=== PATIENT | male | born 1955 | race Caucasian/White ===

== ENCOUNTER 2022-04-17 13:44 | Observation (INO) | payer OTHER, BC ==
[2022-04-17 14:03] VITALS: BMI 27.3
[2022-04-17 14:53] LABS: BASO % 0.8 % (0-2.0); EOS % 0.8 % (0-4.5); HEMATOCRIT 42.9 % (35.4-49); HEMOGLOBIN 14.6 GM/dL (11.7-16.9); LYMPH % 21.7 % (8-40); MCH 27.5 pg (25.7-33.7); MEAN CELL VOLUME 80.9 fl (80-96); MEAN PLT VOLUME 8.2 fl (7.5-11.1); MONO % 8.8 % (3.8-10.2); NEUT % 67.9 % (42.8-82.8); PLATELET COUNT 260 10^3/uL (134-434); RDW 15.2 % (11.9-15.9); WHITE BLOOD COUNT 8.6 K/mm3 (4.0-10.0)
[2022-04-17 15:00] LABS: INR 1.06 (0.83-1.09); PROTHROMBIN TIME (PATIENT) 12.3 SEC (9.7-13.0)
[2022-04-17 15:02] LABS: ACTIVATED PTT 31.5 SECONDS (25.2-36.5)
[2022-04-17] MEDS ORDERED: dilTIAZem HCL 50 MG/10 ML - 10 ML VIAL IVPUSH ONE (15:20)
[2022-04-17] MEDS ORDERED: dilTIAZem HCL 50 MG/10 ML - 10 ML VIAL ONE (15:30)
[2022-04-17] MEDS ORDERED: METOPROLOL TARTRATE 5 MG/5 ML VIAL IVPUSH PRN (15:52)
[2022-04-17 16:15] LABS: CHLORIDE 104 mmol/L (98-107); SODIUM 133 mmol/L (136-145)
[2022-04-17 16:17] LABS: BLOOD UREA NITROGEN 11.9 mg/dL (7-18); CALCIUM 9.1 mg/dL (8.5-10.1); CO2 23 mmol/L (21-32); GLUCOSE,RANDOM 94 mg/dL (74-106); MAGNESIUM 1.8 mg/dL (1.8-2.4)
[2022-04-17 16:18] LABS: ALBUMIN 3.9 g/dl (3.4-5.0)
[2022-04-17 16:21] LABS: ANION GAP 6 MMOL/L (8-16); SGPT/ALT 28 U/L (13-61)
[2022-04-17 16:23] LABS: ALK PHOS 52 U/L (45-117); BILIRUBIN,TOTAL 0.6 mg/dL (0.2-1); TOT PROT 7.9 g/dl (6.4-8.2)
[2022-04-17 16:26] LABS: N-TERMINAL BNP 1432.2 pg/ml (5-125)
[2022-04-17 16:30] LABS: SGOT/AST 114 U/L (15-37)
[2022-04-17] MEDS: ENOXAPARIN NA (PORCINE) 80 MG/0.8 ML DISP.SYRIN SQ SCH (21:56)
[2022-04-17] MEDS: METOPROLOL TARTRATE 25 MG TABLET (FP) PO SCH (21:56)
[2022-04-18 07:31] LABS: BASO % 0.8 % (0-2.0); HEMATOCRIT 42.5 % (35.4-49); HEMOGLOBIN 14.4 GM/dL (11.7-16.9); LYMPH % 29.8 % (8-40); MCH 27.3 pg (25.7-33.7); MCHC 33.9 g/dl (32.0-35.9); MEAN CELL VOLUME 80.5 fl (80-96); MEAN PLT VOLUME 8.3 fl (7.5-11.1); MONO % 9.9 % (3.8-10.2); NEUT % 57.5 % (42.8-82.8); PLATELET COUNT 252 10^3/uL (134-434); RBC 5.28 M/mm3 (4.00-5.60); WHITE BLOOD COUNT 7.4 K/mm3 (4.0-10.0)
[2022-04-18 08:01] LABS: CALCIUM 9.3 mg/dL (8.5-10.1)
[2022-04-18 08:02] LABS: ALBUMIN 3.7 g/dl (3.4-5.0); BLOOD UREA NITROGEN 15.6 mg/dL (7-18); CREATININE 0.9 mg/dL (0.55-1.3)
[2022-04-18 08:03] LABS: BILIRUBIN,TOTAL 0.6 mg/dL (0.2-1); TOT PROT 6.9 g/dl (6.4-8.2)
[2022-04-18] MEDS: ENOXAPARIN NA (PORCINE) 80 MG/0.8 ML DISP.SYRIN SQ SCH (09:09)
[2022-04-18] MEDS: METOPROLOL TARTRATE 25 MG TABLET (FP) PO SCH ×2 (09:09→21:35)
[2022-04-18] MEDS: ACETAMINOPHEN 325 MG TABLET (FP) PO PRN ×2 (10:34→20:21)
[2022-04-18] MEDS: FUROSEMIDE 20 MG TABLET (FP) PO SCH (13:22)
[2022-04-18] MEDS: APIXABAN 5 MG TABLET PO SCH (21:35)
[2022-04-19 05:48] VITALS: RESP 20
[2022-04-19 08:01] VITALS: BP 129/87; PULSE 59; TEMP 98.8
[2022-04-19] MEDS: METOPROLOL TARTRATE 25 MG TABLET (FP) PO SCH (09:02)
[2022-04-19] MEDS: APIXABAN 5 MG TABLET PO SCH (09:02)
[2022-04-19] MEDS: FUROSEMIDE 20 MG TABLET (FP) PO SCH (09:02)
== END 2022-04-19 10:06 | disposition home or self-care (01) ==
LOC: JER 13:44 → JERBED 15:21 → J4W 18:06
PROVIDERS: ADMIT Family Medicine; ATTEND Family Medicine
PROC: 3E033GC Introduction of Other Therapeutic Substance into Peripheral Vein, Percutaneous Approach (ICD-10-PCS; principal; 2022-04-17)
PROC: 3E023GC Introduction of Other Therapeutic Substance into Muscle, Percutaneous Approach (ICD-10-PCS; 2022-04-17)
DX: I48.91 Unspecified atrial fibrillation (principal); M54.9 Dorsalgia, unspecified; I10 Essential (primary) hypertension; I48.20 Chronic atrial fibrillation, unspecified; J45.909 Unspecified asthma, uncomplicated
CPT/HCPCS: 0241U-QW; 36415; 71045-TC-FY; 71275-TC; 80053; 80061; 83735; 83880; 84132; 84436; 84439; 84443; 84484; 85025; 85379; 85610; 85730; 93005; 93010; 96372; 96374; 99285-25; G0378; Q9967

== ENCOUNTER 2024-06-18 15:24 | Inpatient (IN) | payer OTHER, BC ==
[2024-06-18 16:16] LABS: ABSOLUTE IMMATURE GRANULOCYTES 0.05 x10^3/uL (0.0-0.031); BASOPHILS # 0.09 x10^3/uL (0.01-0.08); EOSINOPHIL % 1.3 % (0.8-7.0); EOSINOPHILS # 0.16 x10^3/uL (0.04-0.54); HEMOGLOBIN 13.3 g/dL (13.7-17.5); MCHC 32.4 g/dl (32.3-36.5); MEAN CELL VOLUME 74.7 fl (79.0-92.2); MONOCYTE # 1.14 x10^3/uL (0.30-0.82); PLATELET COUNT 273 x10^3/uL (163-337); RDW 15.1 % (12.2-16.4)
[2024-06-18 16:24] LABS: INR 1.78 (0.83-1.09); PROTHROMBIN TIME (PATIENT) 19.4 SEC (9.7-13.0)
[2024-06-18 16:35] LABS: CHLORIDE 100 mmol/L (98-107); SODIUM 140 mmol/L (136-145)
[2024-06-18 16:37] LABS: CALCIUM 9.5 mg/dL (8.5-10.1)
[2024-06-18 16:38] LABS: ALBUMIN 3.9 g/dl (3.4-5.0); BLOOD UREA NITROGEN 13.3 mg/dL (7-18); CO2 29 mmol/L (21-32); GLUCOSE,RANDOM 106 mg/dL (74-106); MAGNESIUM 1.5 mg/dL (1.8-2.4)
[2024-06-18 16:41] LABS: CREATININE 1.1 mg/dL (0.55-1.3); SGOT/AST 27 U/L (15-37); SGPT/ALT 23 U/L (13-61)
[2024-06-18 16:43] LABS: BILIRUBIN,TOTAL 0.5 mg/dL (0.2-1); TOT PROT 7.2 g/dl (6.4-8.2)
[2024-06-18 16:44] LABS: ALK PHOS 61 U/L (45-117)
[2024-06-18] MEDS ORDERED: MAGNESIUM 1GM/D5W - 1 GM/100 ML IVPB IVPB ONE (17:05)
[2024-06-18 17:18] LABS: ANION GAP 12 mmol/L (4-13); POTASSIUM 2.9 mmol/L (3.5-5.1)
[2024-06-18] MEDS: SODIUM CHLORIDE 0.9% 500 ML INFUS.BAG IV ONE (17:21)
[2024-06-18] MEDS: MAGNESIUM SULF 50% (8.12 MEQ/2 ML-1 GM VIAL) IVPB ONE (17:21)
[2024-06-18] MEDS ORDERED: POTASSIUM CHLORIDE ORAL LIQUID 20 MEQ/15 ML ONE (17:45)
[2024-06-18] MEDS: POTASSIUM CHLORIDE ORAL LIQUID 20 MEQ/15 ML PO ONE (17:48)
[2024-06-18 18:19] LABS: HCV DIAGNOSTIC IN-HOUSE W/RFLX NON-REACTIVE (NONREACTIVE); HIV INTERPRETATION NEGATIVE (NEGATIVE)
[2024-06-18] MEDS ORDERED: KCL 10 MEQ IVPB 10 MEQ/100 ML INFUS.BAG IVPB ONE (18:51)
[2024-06-18] MEDS: KCL 10 MEQ IVPB 10 MEQ/100 ML INFUS.BAG IVPB SCH (18:59)
[2024-06-18] MEDS: SODIUM CHLORIDE 0.9% 1000 ML INFUS.BAG IV ONE (18:59)
[2024-06-18] MEDS ORDERED: KCL 10 MEQ IVPB 20 MEQ/200 ML INFUS.BAG IVPB ONE (19:42)
[2024-06-18] MEDS ORDERED: APIXABAN 5 MG TABLET ONE (21:38)
[2024-06-18] MEDS ORDERED: ATORVASTATIN CA 10 MG TABLET (FP) ONE ×2 (21:38→21:41)
[2024-06-18] MEDS: ATORVASTATIN CA 10 MG TABLET (FP) PO SCH (21:40)
[2024-06-18] MEDS: APIXABAN 5 MG TABLET PO SCH (21:40)
[2024-06-18 22:31] VITALS: BMI 27.3
[2024-06-19] MEDS: ACETAMINOPHEN 325 MG TABLET (FP) PO PRN (03:22)
[2024-06-19 03:43] LABS: POTASSIUM 3.5 mmol/L (3.5-5.1)
[2024-06-19 03:44] LABS: CALCIUM 8.8 mg/dL (8.5-10.1)
[2024-06-19 03:45] LABS: BLOOD UREA NITROGEN 11.1 mg/dL (7-18)
[2024-06-19 03:48] LABS: CREATININE 0.9 mg/dL (0.55-1.3)
[2024-06-19] MEDS: oxyCODONE HCL 5 MG TABLET PO ONE (06:47)
[2024-06-19 08:24] LABS: ABSOLUTE IMMATURE GRANULOCYTES 0.03 x10^3/uL (0.0-0.031); BASOPHILS # 0.07 x10^3/uL (0.01-0.08); EOSINOPHIL % 1.7 % (0.8-7.0); EOSINOPHILS # 0.18 x10^3/uL (0.04-0.54); HEMATOCRIT 39.4 % (40.1-51.0); HEMOGLOBIN 12.6 g/dL (13.7-17.5); MEAN CELL VOLUME 76.1 fl (79.0-92.2); MEAN PLT VOLUME 10.4 fl (9.4-12.4); MONOCYTE # 1.04 x10^3/uL (0.30-0.82); MONOCYTE % 9.8 % (5.3-12.2); PLATELET COUNT 239 x10^3/uL (163-337); RDW 15.5 % (12.2-16.4)
[2024-06-19 08:43] LABS: POTASSIUM 3.5 mmol/L (3.5-5.1)
[2024-06-19 08:45] LABS: CALCIUM 8.8 mg/dL (8.5-10.1)
[2024-06-19 08:46] LABS: BLOOD UREA NITROGEN 11.2 mg/dL (7-18); MAGNESIUM 1.7 mg/dL (1.8-2.4)
[2024-06-19] MEDS: MAGNESIUM 1GM/D5W 100ML - 100 ML IVPB IVPB ONE (09:29)
[2024-06-19] MEDS: POTASSIUM CHLORIDE ORAL LIQUID 20 MEQ/15 ML PO ONE (09:29)
[2024-06-19 14:29] LABS: URINE APPEARANCE CLEAR; URINE BILIRUBIN NEGATIVE (NEGATIVE); URINE COLOR YELLOW; URINE GLUCOSE (UA) NEGATIVE (NEGATIVE); URINE KETONE NEGATIVE (NEGATIVE); URINE LEUK ESTERASE NEGATIVE (NEGATIVE); URINE NITRITE NEGATIVE (NEGATIVE); URINE PROTEIN NEGATIVE (NEGATIVE); URINE UROBILINOGEN 0.2 mg/dL (0.2-1.0)
[2024-06-20] MEDS: oxyCODONE HCL 5 MG TABLET PO ONE (00:09)
[2024-06-20] MEDS: CycloBENZAprine HCL 5 MG TABLET PO ONE (06:29)
[2024-06-20] MEDS: traMADol HCL 50 MG TABLET PO PRN (09:31)
[2024-06-20 09:49] LABS: ABSOLUTE IMMATURE GRANULOCYTES 0.05 x10^3/uL (0.0-0.031); BASOPHILS # 0.07 x10^3/uL (0.01-0.08); EOSINOPHIL % 1.1 % (0.8-7.0); EOSINOPHILS # 0.13 x10^3/uL (0.04-0.54); HEMATOCRIT 38.8 % (40.1-51.0); HEMOGLOBIN 11.9 g/dL (13.7-17.5); MCHC 30.7 g/dl (32.3-36.5); MEAN CELL VOLUME 76.5 fl (79.0-92.2); MEAN PLT VOLUME 9.8 fl (9.4-12.4); MONOCYTE # 1.01 x10^3/uL (0.30-0.82); MONOCYTE % 8.4 % (5.3-12.2); PLATELET COUNT 233 x10^3/uL (163-337); RDW 15.8 % (12.2-16.4)
[2024-06-20 10:11] LABS: POTASSIUM 3.4 mmol/L (3.5-5.1)
[2024-06-20 10:15] LABS: CALCIUM 9.3 mg/dL (8.5-10.1)
[2024-06-20 10:16] LABS: ALBUMIN 3.5 g/dl (3.4-5.0); BLOOD UREA NITROGEN 11.7 mg/dL (7-18); MAGNESIUM 1.7 mg/dL (1.8-2.4)
[2024-06-20 10:19] LABS: CREATININE 0.9 mg/dL (0.55-1.3)
[2024-06-20 10:20] LABS: BILIRUBIN,TOTAL 0.6 mg/dL (0.2-1); TOT PROT 6.7 g/dl (6.4-8.2)
[2024-06-20] MEDS: POTASSIUM CHLORIDE TABS 20 MEQ TABLET.ER (FP) PO ONE (11:08)
[2024-06-20] MEDS: MAGNESIUM 2GM/50ML STERILE WATER IVPB IVPB ONE (11:08)
[2024-06-20] MEDS: oxyCODONE HCL 5 MG TABLET PO PRN (17:33)
[2024-06-21 07:47] LABS: ABSOLUTE IMMATURE GRANULOCYTES 0.02 x10^3/uL (0.0-0.031); BASOPHILS # 0.05 x10^3/uL (0.01-0.08); EOSINOPHIL % 1.3 % (0.8-7.0); EOSINOPHILS # 0.13 x10^3/uL (0.04-0.54); HEMATOCRIT 35.8 % (40.1-51.0); HEMOGLOBIN 11.2 g/dL (13.7-17.5); MCHC 31.3 g/dl (32.3-36.5); MEAN CELL VOLUME 76.2 fl (79.0-92.2); MEAN PLT VOLUME 10.1 fl (9.4-12.4); MONOCYTE # 1.07 x10^3/uL (0.30-0.82); MONOCYTE % 10.4 % (5.3-12.2); PLATELET COUNT 213 x10^3/uL (163-337); RDW 15.7 % (12.2-16.4)
[2024-06-21 08:04] LABS: POTASSIUM 3.5 mmol/L (3.5-5.1)
[2024-06-21 08:07] LABS: CALCIUM 9.1 mg/dL (8.5-10.1)
[2024-06-21 08:08] LABS: ALBUMIN 3.3 g/dl (3.4-5.0); BLOOD UREA NITROGEN 8.7 mg/dL (7-18); MAGNESIUM 1.9 mg/dL (1.8-2.4)
[2024-06-21 08:11] LABS: CREATININE 0.7 mg/dL (0.55-1.3)
[2024-06-21 08:13] LABS: BILIRUBIN,TOTAL 0.9 mg/dL (0.2-1); TOT PROT 6.3 g/dl (6.4-8.2)
[2024-06-21] MEDS: POTASSIUM CHLORIDE ORAL LIQUID 20 MEQ/15 ML PO ONE (13:41)
[2024-06-22] MEDS: FUROSEMIDE 20 MG TABLET (FP) PO SCH (10:05)
[2024-06-22 11:23] VITALS: BP 133/83; PULSE 74; RESP 18; TEMP 98.6
== END 2024-06-22 15:13 | disposition home or self-care (01) | DRG 914 ==
LOC: JER 15:24 → JERBED 18:01 → J4W 22:22 → OBSVTOIN 06-20 08:57
PROVIDERS: ADMIT Internal Medicine; ATTEND Internal Medicine
DX: S09.90XA Unspecified injury of head, initial encounter (principal); I48.91 Unspecified atrial fibrillation; J44.9 Chronic obstructive pulmonary disease, unspecified; J45.909 Unspecified asthma, uncomplicated; I10 Essential (primary) hypertension; E78.5 Hyperlipidemia, unspecified; E87.8 Other disorders of electrolyte and fluid balance, not elsewhere classified; M54.2 Cervicalgia; R55 Syncope and collapse; E83.42 Hypomagnesemia; Z79.01 Long term (current) use of anticoagulants; E87.6 Hypokalemia; W19.XXXA Unspecified fall, initial encounter; Y93.9 Activity, unspecified; Y92.89 Other specified places as the place of occurrence of the external cause; Y99.9 Unspecified external cause status; R05.4 Cough syncope
CPT/HCPCS: 0241U-QW; 36415; 70450-TC; 71045-TC-FY; 72125-TC; 72128-TC; 72131-TC; 72141-TC; 74230-TC-FY; 80048; 80053; 80061; 81003; 83735; 84439; 84443; 84484; 85025; 85610; 85730; 86803; 87040; 87389; 92611-GN; 93005; 93010; 93306-TC; 93880-TC; 97116-GP; 97161-GP; 99291; G0378